=== PATIENT | male | born 1950 | race African-American/Black ===

== ENCOUNTER 2018-04-02 15:19 | Observation (INO) ==
[2018-04-02] MEDS ORDERED: Labetalol HCl Inj 100 MG/20 ML Vial IV.PUSH ONE ×2 (16:49→18:08)
[2018-04-02] MEDS ORDERED: amLODIPine 10 MG Tablet PO ONE (16:49)
--- NOTE | 2018-04-02 16:56 | ED ---
HPI General Chief complaint: Recheck/Abnormal Lab/Rx Stated complaint: poss high blood pressure Time Seen by Provider: 04/02/18 16:48 History of Present Illness HPI narrative: 67-year-old male presents to the emergency department for evaluation of elevated blood pressure. Patient states that he was at [facility] earlier today and he is upper arms have been hurting him for the past 3 days so he decided to check his blood pressure. States that his blood pressure was about 180/[address] [facility] so he went to an urgent care clinic for further evaluation. States that he was told by urgent care to come to the emergency department for elevated blood pressure. He states that he has no history of hypertension or elevated blood pressure, states that over the past 2 weeks he has been eating very salty foods which he normally does not eat. States that over the past 3 days he has had a soreness pain in his shoulders extending to his elbows, states it is also associated with a numbness sensation. States that it is worse at night. He does do heavy lifting for work. Denies any specific injury or trauma to his shoulders or arms. He denies any headache, lightheadedness, dizziness, nausea, vomiting, abdominal pain, chest pain, shortness of breath, weakness. No other complaints or concerns. Related Data Home Medications Medication Instructions Recorded Confirmed No Known Home Medications 04/02/18 04/02/18 Allergies Allergy/AdvReac Type Severity Reaction Status Date / Time No Known Allergies Allergy Uncoded 12/13/15 13:07 Review of Systems ROS: all other systems reviewed are negative [facility] Medical History Medical History Hypercholesteremia (Acute) Hypertension (Acute) Surgical History Surgical History History of appendectomy (Acute) History of hernia repair (Acute) Social History Social History Substance History: No History of Abuse Second Hand Smoke Exposure: No Smoking Status: Never smoker Tobacco Type: Cigarettes How Often Do You Have a Drink Containing Alcohol: 2 to 3 times a week Recent Out of Country Travel within the Last 8 Weeks: No Exam Narrative Exam Narrative: GENERAL: Well-nourished and well-developed pleasant patient in no acute distress who is nontoxic appearing. SKIN: Warm and dry without any obvious rashes or lesions. HEAD: Normocephalic and atraumatic. EYES: No injection, drainage, or hyphema noted. PERRLA. EOMI. ENT: No nasal drainage noted. Oropharynx is clear. NECK: Supple and the trachea is midline. CARDIOVASCULAR: Regular rate and rhythm. RESPIRATORY: Breath sounds are equal bilaterally with no accessory muscle use, wheezing, rhonchi, or crackles. GASTROINTESTINAL: Abdomen is soft, non-tender, and nondistended. No hepatosplenomegaly. MUSCULOSKELETAL: No obvious deformities, swelling, cyanosis, or ecchymosis is present throughout the upper and lower extremities. Patient has full range of motion without any signs of neurovascular compromise. Distal pulses are 2+ throughout. Strength 5/5 upper and lower extremities equal bilaterally. NEUROLOGICAL: Awake, alert, and oriented. Normal speech and gait. Cranial nerves are grossly intact. Course Initial Documented Vital Signs Temperature 98 F 04/02/18 15:25 Pulse Rate 65 04/02/18 15:25 Respiratory Rate 18 04/02/18 15:25 Blood Pressure 238/112 H 04/02/18 15:25 Pulse Oximetry 99 04/02/18 15:25 Last Documented Vital Signs Temperature 98 F 04/02/18 15:25 Pulse Rate 72 04/02/18 18:49 Respiratory Rate 18 04/02/18 18:49 Blood Pressure 176/111 H 04/02/18 18:49 Pulse Oximetry 98 04/02/18 18:49 Medical Decision Making MDM Narrative Medical decision making narrative: 67-year-old male presents to the emergency department for evaluation of elevated blood pressure. Patient's blood pressure is 238/112. Otherwise vital signs are within normal limits. Patient's only complaint is he has had bilateral shoulder pain extending down to his elbows for the past 3 days mostly at night. Physical examination is essentially unremarkable. No focal neurologic deficits. IV access is obtained, labs have been drawn and sent. Patient is placed on cardiac telemetry and pulse oximetry monitoring. Patient is administered labetalol 10 mg IV and Norvasc 10 mg orally. Patient's blood pressure still elevated at 198/103 so he is given another dose of Labetalol 10 mg IV. After observation here in the ED his BP has remained elevated at 176/111. I discussed the case with my attending physician Dr. Davis and we agree the patient should be kept overnight for observation and blood pressure control. I spoke with Dr. Telles who agrees to accept the patient to his service. Medical Screen Exam Complete: Yes Emergency Medical Condition: Yes Differential Diagnosis Differential Diagnosis: Uncontrolled hypertension versus hypertensive urgency versus asymptomatic hypertension Lab Data Result diagrams: 04/02/18 17:00 18 17:34 Lab Results 04/02/18 04/02/18 Range/Units 17:00 17:34 WBC 8.4 (4.0-11.0) th/mm3 RBC 6.11 H (4.50-5.90) mil/mm3 Hgb 14.5 (13.0-17.0) gm/dL Hct 44.8 (39.0-51.0) % MCV 73.4 L (80.0-100.0) fL MCH 23.8 L (27.0-34.0) pg MCHC 32.4 (32.0-36.0) % RDW 15.6 (11.6-17.2) % Plt Count 251 (150-450) th/mm3 MPV 8.0 (7.0-11.0) fL Neut % (Auto) 63.7 (16.0-70.0) % Lymph % (Auto) 27.4 (9.0-44.0) % [place] % (Auto) 6.9 (0.0-8.0) % Eos % (Auto) 1.5 (0.0-4.0) % Baso % (Auto) 0.5 (0.0-2.0) % Neut # (Auto) 5.4 (1.8-7.7) th/mm3 Lymph # (Auto) 2.3 (1.0-4.8) th/mm3 [place] # (Auto) 0.6 (0.0-0.9) th/mm3 Eos # (Auto) 0.1 (0.0-0.4) th/mm3 Baso # (Auto) 0.0 (0.0-0.2) th/mm3 WBC Differential . Differential Comment Auto diff final Sodium 139 (136-145) meq/L Potassium 3.8 (3.5-5.1) meq/L Chloride 103 (98-107) meq/L Carbon Dioxide 27.6 (21.0-32.0) meq/L Anion Gap 8 (5-15) meq/L BUN 13 (7-18) mg/dL Creatinine 0.93 (0.60-1.30) mg/dL Estimated GFR Greater than 89 (>89) mL/min Random Glucose 87 (74-106) mg/dL Calcium 8.7 (8.5-10.1) mg/dL Total Bilirubin 0.3 (0.2-1.0) mg/dL AST 20 (15-37) U/L ALT 22 (12-78) U/L Alkaline Phosphatase 61 (45-117) U/L Troponin I Less than 0.02 L (0.02-0.05) ng/mL Total Protein 7.9 (6.4-8.2) g/dL Albumin 3.9 (3.4-5.0) g/dL Discharge Plan Discharge Disposition Patient Disposition: 30 Still Patient Discharge Condition Condition: Stable Discharge Details Diagnosis: Hypertensive urgency Physicians Team ED Provider: La Davis ED Midlevel Provider: Ligia Telles Primary Care Provider: UNKNOWN, Rxs /Orders / Referrals /Forms Prescriptions: No Action No Known Home Medications RF: 0 Discharge Interventions Interventions: Vital Signs Last Done: 04/02/18 15:30 Status ED Status: With Doctor
[2018-04-02 17:13] LABS: Baso % (Auto) 0.5 % (0.0-2.0); Eos # (Auto) 0.1 th/mm3 (0.0-0.4); Eos % (Auto) 1.5 % (0.0-4.0); Hematocrit 44.8 % (39.0-51.0); Hemoglobin 14.5 gm/dL (13.0-17.0); Lymph # (Auto) 2.3 th/mm3 (1.0-4.8); Lymph % (Auto) 27.4 % (9.0-44.0); Mean Corpuscular HGB Conc 32.4 % (32.0-36.0); Mean Corpuscular Hemoglobin 23.8 pg (27.0-34.0); Mean Corpuscular Volume 73.4 fL (80.0-100.0); Mono # (Auto) 0.6 th/mm3 (0.0-0.9); Mono % (Auto) 6.9 % (0.0-8.0); Neut # (Auto) 5.4 th/mm3 (1.8-7.7); Neut % (Auto) 63.7 % (16.0-70.0); Platelet Count 251 th/mm3 (150-450); Red Blood Count 6.11 mil/mm3 (4.50-5.90); Red Cell Distribution Width 15.6 % (11.6-17.2); White Blood Count 8.4 th/mm3 (4.0-11.0)
[2018-04-02 18:17] LABS: Alanine Aminotransferase 22 U/L (12-78)
[2018-04-02 18:18] LABS: Albumin 3.9 g/dL (3.4-5.0); Anion Gap 8 meq/L (5-15); Aspartate Aminotransferase 20 U/L (15-37); Blood Urea Nitrogen 13 mg/dL (7-18); Calcium 8.7 mg/dL (8.5-10.1); Carbon Dioxide 27.6 meq/L (21.0-32.0); Chloride 103 meq/L (98-107); Glomerular Filtration Rate Greater Than 89 mL/min (>89); Glucose,Random 87 mg/dL (74-106); Potassium 3.8 meq/L (3.5-5.1); Sodium 139 meq/L (136-145)
[2018-04-02 18:21] LABS: Alkaline Phosphatase 61 U/L (45-117); Total Protein 7.9 g/dL (6.4-8.2)
[2018-04-02] MEDS ORDERED: Lisinopril 20 MG Tablet PO ONE (19:09)
[2018-04-02] MEDS ORDERED: Zolpidem Tartrate 5 MG Tablet PO PRN (19:10)
--- NOTE | 2018-04-02 20:03 | P.HPIM ---
History of Present Illness Primary Care Physician: UNKNOWN Chief Complaint: high blood pressure History of Present Illness: 67 y/o male with no medical history, and no pcp presented to the ED with complaint of a high blood pressure. Patient states for the last 2 nights he has been having muscle pains, stiffness in his bilateral upper extremities. He states today he went to [facility] to check his BP and is was elevated and he then went to an urgent care that then sent him to the ED. Patient denies any recent stress, chest pain, dizziness or sob. He does not smoke or drink heavily. He does not follow with a pcp and states he has never had this problem before. He does state that the pain in his arms has subsided. Denies any numbness, tingling or edema in any extremities. Review of Systems All other systems reviewed negative except as stated in HPI PMFSH - History History Provided By: Patient - Medical History Medical History: Medical History (Last Updated 04/02/18 @ 19:53 by DUSTIN Preciado) Hypertension - Surgical History Surgical History: Surgical History (Last Updated 04/02/18 @ 16:54 by Tatiana Torres) History of appendectomy History of hernia repair - Family History Family History: Family History (Last Updated 04/02/18 @ 19:52 by DUSTIN Preciado) Mother Bone cancer - Tobacco History Second Hand Smoke Exposure: No Tobacco Use In Past 30 Days: No Smoking Status: Never smoker Tobacco Type: Cigarettes - Alcohol History How Often Do You Have a Drink Containing Alcohol: 2 to 3 times a week - Substance Use History Substance History: No History of Abuse - Travel History Recent Travel Out of the Country Within the Last 8 Weeks: No - Immunization History Tetanus Immunization: Unsure Hx Influenza Vaccine This Season: Yes Medications and Allergies Active Medications: Active Medications Al Hydroxide/Mg Hydroxide (Milk Of Joshua Iniguez) 30 ml PO Q12H PRN PRN Reason: Mild Constipation Clonidine HCl (Catapres) 0.1 mg PO Q6H PRN PRN Reason: SYS BP GREATER THAN 160 MMHG Enalaprilat (Vasotec Inj) 1.25 mg IV.PUSH Q6H PRN PRN Reason: SBP>160, DBP>90 Lisinopril (Prinivil) 40 mg PO DAILY DIONNE Sodium Chloride (Ns Flush) 2 ml IV.FLUSH UNSCH PRN PRN Reason: FLUSH AFTER USING IV ACCESS Zolpidem Tartrate (Ambien) 5 mg PO HS PRN PRN Reason: INSOMNIA Allergies Allergy/AdvReac Type Severity Reaction Status Date / Time No Known Allergies Allergy Uncoded 12/13/15 13:07 Home Medications Medication Instructions Recorded Confirmed Type No Known Home Medications 04/02/18 04/02/18 History Exam Vital signs: Vital Signs 04/02/18 15:25 04/02/18 15:30 04/02/18 17:45 Temperature 98 F Pulse Rate 65 75 65 Respiratory Rate 18 18 18 Blood Pressure 238/112 H 240/127 H 198/103 H Pulse Oximetry 99 100 98 04/02/18 18:49 Temperature Pulse Rate 72 Respiratory Rate 18 Blood Pressure 176/111 H Pulse Oximetry 98 Narrative: GENERAL: This is a well-nourished, well-developed patient, in no apparent distress. CARDIOVASCULAR: Regular rate and rhythm without murmurs, gallops, or rubs. RESPIRATORY: Clear to auscultation. Breath sounds equal bilaterally. No wheezes , rales, or rhonchi. GASTROINTESTINAL: Abdomen soft, non-tender, nondistended. Normal active bowel sounds MUSCULOSKELETAL: Extremities without clubbing, cyanosis, or edema. NEURO: Alert & Oriented x4 to person, place, time, situation. Moves all ext x4 Results - Labs CBC & Chem 7: 04/02/18 17:00 04/02/18 17:34 Labs: Short CBC 04/02/18 Range/Units 17:00 WBC 8.4 (4.0-11.0) th/mm3 Hgb 14.5 (13.0-17.0) gm/dL Hct 44.8 (39.0-51.0) % Plt Count 251 (150-450) th/mm3 BMP 04/02/18 17:34 Sodium 139 Potassium 3.8 Chloride 103 Carbon Dioxide 27.6 BUN 13 Creatinine 0.93 Calcium 8.7 Cardiac Enzymes 04/02/18 Range/Units 17:34 Troponin I Less than 0.02 L (0.02-0.05) ng/mL Liver Function 04/02/18 Range/Units 17:34 Total Bilirubin 0.3 (0.2-1.0) mg/dL AST 20 (15-37) U/L ALT 22 (12-78) U/L Alkaline Phosphatase 61 (45-117) U/L Albumin 3.9 (3.4-5.0) g/dL Caprini VTE Risk Assessment Caprini VTE Risk Assessment: No/Low Risk (score <= 1) Caprini Risk Assessment Model: Point Value = 1 Point Value = 2 Point Value = 3 Point Value = 5 Age 41-60 Minor surgery BMI > 25 kg/m2 Swollen legs Varicose veins or History of unexplained or recurrent spontaneous Oral contraceptives or hormone replacement Sepsis (< 1 month) Serious lung disease, including pneumonia (< 1 month) Abnormal pulmonary function Acute myocardial infarction Congestive heart failure (< 1 month) History of inflammatory bowel disease Medical patient at bed rest Age 61-74 Arthroscopic surgery Major open surgery (> 45 min) Laparoscopic surgery (> 45 min) Malignancy Confined to bed (> 72 hours) Immobilizing plaster cast Central venous access Age >= 75 History of VTE Family history of VTE Factor V Leiden Prothrombin [id number] Lupus anticoagulant Anticardiolipin antibodies Elevated serum homocysteine Heparin-induced thrombocytopenia Other congenital or acquired thrombophilia Stroke (< 1 month) Elective arthroplasty Hip, pelvis, or leg fracture Acute spinal cord injury (< 1 month) Prophylaxis Regimen: Total Risk Factor Score Risk Level Prophylaxis Regimen 0-1 Low Early ambulation 2 Moderate Order ONE of the following: *Sequential Compression Device (SCD) *Heparin 5000 units SQ BID 3-4 Higher Order ONE of the following medications: *Heparin 5000 units SQ TID *Enoxaparin/Lovenox 40 mg SQ daily (WT < 150 kg, CrCl > 30 mL/min) *Enoxaparin/Lovenox 30 mg SQ daily (WT < 150 kg, CrCl > 10-29 mL/min) *Enoxaparin/Lovenox 30 mg SQ BID (WT < 150 kg, CrCl > 30 mL/min) AND/OR *Sequential Compression Device (SCD) 5 or more Highest Order ONE of the following medications: *Heparin 5000 units SQ TID (Preferred with Epidurals) *Enoxaparin/Lovenox 40 mg SQ daily (WT < 150 kg, CrCl > 30 mL/min) *Enoxaparin/Lovenox 30 mg SQ daily (WT < 150 kg, CrCl > 10-29 mL/min) *Enoxaparin/Lovenox 30 mg SQ BID (WT < 150 kg, CrCl > 30 mL/min) AND *Sequential Compression Device (SCD) Assessment and Plan - Plan 67 y/o male with no medical history, and no pcp presented to the ED with complaint of a high blood pressure. Hypertensive urgency, BP on admission 238/112, no HTN history -Norvasc and lisinopril given x 1 in ED -Cont lisinopril daily 40mg, will add medications as needed -Trend troponin -clonidine prn and vasotec IV prn -monitor vitals -Consult case management for outpatient follow up DVT prophylaxis: SCDs Discussed Condition With: Patient and RN
--- NOTE | 2018-04-02 20:58 | ECG ---
Date Performed: 04/02/2018 Time Performed: 18:19:35 PTAGE: 67 years EKG: Sinus rhythm WITH OCCASIONAL SUPRAVENTRICULAR PREMATURE COMPLEXES POSSIBLE LEFT ATRIAL ENLARGEMENT POSSIBLE LEFT VENTRICULAR HYPERTROPHY NONSPECIFIC ST ABNORMALITY ABNORMAL ECG NO PREVIOUS TRACING DOCTOR: Romero Vegas Interpretating Date/Time 04/02/2018 20:56:43
[2018-04-03 08:00] LABS: Baso % (Auto) 0.5 % (0.0-2.0); Eos # (Auto) 0.1 th/mm3 (0.0-0.4); Eos % (Auto) 3.2 % (0.0-4.0); Hematocrit 42.6 % (39.0-51.0); Hemoglobin 13.9 gm/dL (13.0-17.0); Lymph # (Auto) 1.6 th/mm3 (1.0-4.8); Lymph % (Auto) 34.6 % (9.0-44.0); Mean Corpuscular HGB Conc 32.8 % (32.0-36.0); Mean Corpuscular Hemoglobin 23.6 pg (27.0-34.0); Mean Corpuscular Volume 72.2 fL (80.0-100.0); Mean Platelet Volume 8.3 fL (7.0-11.0); Mono # (Auto) 0.5 th/mm3 (0.0-0.9); Mono % (Auto) 11.6 % (0.0-8.0); Neut # (Auto) 2.2 th/mm3 (1.8-7.7); Neut % (Auto) 50.1 % (16.0-70.0); Platelet Count 249 th/mm3 (150-450); Red Cell Distribution Width 15.4 % (11.6-17.2); White Blood Count 4.5 th/mm3 (4.0-11.0)
[2018-04-03 08:25] LABS: Alanine Aminotransferase 19 U/L (12-78); Albumin 3.5 g/dL (3.4-5.0); Anion Gap 9 meq/L (5-15); Aspartate Aminotransferase 13 U/L (15-37); Blood Urea Nitrogen 15 mg/dL (7-18); Calcium 8.7 mg/dL (8.5-10.1); Carbon Dioxide 28.6 meq/L (21.0-32.0); Chloride 105 meq/L (98-107); Glomerular Filtration Rate Greater Than 89 mL/min (>89); Glucose,Random 84 mg/dL (74-106); Potassium 3.6 meq/L (3.5-5.1); Sodium 143 meq/L (136-145)
[2018-04-03 08:29] LABS: Alkaline Phosphatase 52 U/L (45-117); Total Protein 6.9 g/dL (6.4-8.2)
[2018-04-03 08:32] VITALS: BP 130/80; RESP 17; TEMP 98.2; O2SAT 97
[2018-04-03] MEDS ORDERED: Lisinopril 20 MG Tablet PO SCH (09:00)
[2018-04-03 10:30] VITALS: PULSE 54
--- NOTE | 2018-04-03 11:54 | P.PN ---
Subjective Interval history: Patient is seen sitting up in bed. He reports that his upper arm pain has resolved. No dizziness syncope or headache. No chest pain or palpitations. No shortness of breath. Discussed the importance of blood pressure control in the avoidance of heart failure, stroke and kidney failure. He tells me that he does have primary care and will be following up with them discharge Physical Exam Vital signs: Vital Signs 04/02/18 15:25 04/02/18 15:30 04/02/18 17:45 Temperature 98 F Pulse Rate 65 75 65 Respiratory Rate 18 18 18 Blood Pressure 238/112 H 240/127 H 198/103 H Pulse Oximetry 99 100 98 04/02/18 18:49 04/02/18 19:55 04/02/18 20:19 Temperature Pulse Rate 72 66 69 Respiratory Rate 18 18 18 Blood Pressure 176/111 H 171/109 H 164/97 H Pulse Oximetry 98 98 98 04/02/18 21:43 04/03/18 00:00 04/03/18 00:27 Temperature 98.7 F 97.4 F L Pulse Rate 57 L 60 53 L Respiratory Rate 18 22 Blood Pressure 122/78 117/71 Pulse Oximetry 98 98 04/03/18 08:00 04/03/18 09:00 Temperature 98.2 F Pulse Rate 65 54 L Respiratory Rate 17 Blood Pressure 130/80 Pulse Oximetry 97 Intake & Output 04/02/18 04/03/18 04/03/18 18:59 06:59 18:59 Weight 66.224 kg Other: Date of Last Bowel Movement 04/02/18 04/02/18 Narrative: GENERAL: Well-nourished, well-developed adult male in no obvious distress. SKIN: Warm and dry. HEAD: Atraumatic. Normocephalic. CARDIOVASCULAR: Regular rate and rhythm. RESPIRATORY: No accessory muscle use. Clear to auscultation. Breath sounds equal bilaterally. GASTROINTESTINAL: Abdomen soft, non-tender, non-distended. Positive bowel sounds. MUSCULOSKELETAL: Extremities without clubbing, cyanosis, or edema. No obvious deformities. NEUROLOGICAL: Awake and alert. No obvious cranial nerve deficits. Motor grossly within normal limits. Normal speech. PSYCHIATRIC: Appropriate mood and affect; insight and judgment good. Results - Labs CBC & Chem 7: 04/03/18 06:29 04/03/18 06:29 Laboratory Results - last 24 hr 04/02/18 04/02/18 04/02/18 17:00 17:34 22:59 WBC 8.4 RBC 6.11 H Hgb 14.5 Hct 44.8 MCV 73.4 L MCH 23.8 L MCHC 32.4 RDW 15.6 Plt Count 251 MPV 8.0 Neut % (Auto) 63.7 Lymph % (Auto) 27.4 [place] % (Auto) 6.9 Eos % (Auto) 1.5 Baso % (Auto) 0.5 Neut # (Auto) 5.4 Lymph # (Auto) 2.3 [place] # (Auto) 0.6 Eos # (Auto) 0.1 Baso # (Auto) 0.0 WBC Differential . Differential Comment Auto diff final Sodium 139 Potassium 3.8 Chloride 103 Carbon Dioxide 27.6 Anion Gap 8 BUN 13 Creatinine 0.93 Estimated GFR Greater than 89 Random Glucose 87 Calcium 8.7 Total Bilirubin 0.3 AST 20 ALT 22 Alkaline Phosphatase 61 Troponin I Less than 0.02 L Less than 0.02 L Total Protein 7.9 Albumin 3.9 04/03/18 04/03/18 06:29 06:29 WBC 4.5 RBC 5.90 Hgb 13.9 Hct 42.6 MCV 72.2 L MCH 23.6 L MCHC 32.8 RDW 15.4 Plt Count 249 MPV 8.3 Neut % (Auto) 50.1 Lymph % (Auto) 34.6 [place] % (Auto) 11.6 H Eos % (Auto) 3.2 Baso % (Auto) 0.5 Neut # (Auto) 2.2 Lymph # (Auto) 1.6 [place] # (Auto) 0.5 Eos # (Auto) 0.1 Baso # (Auto) 0.0 WBC Differential . Differential Comment Auto diff final Sodium 143 Potassium 3.6 Chloride 105 Carbon Dioxide 28.6 Anion Gap 9 BUN 15 Creatinine 0.89 Estimated GFR Greater than 89 Random Glucose 84 Calcium 8.7 Total Bilirubin 0.7 AST 13 L ALT 19 Alkaline Phosphatase 52 Troponin I Less than 0.02 L Total Protein 6.9 D Albumin 3.5 Assessment and Plan - Plan 67 y/o male with no medical history, and no pcp presented to the ED with complaint of a high blood pressure. Hypertensive urgency, BP on admission 238/112, no HTN history -Norvasc and lisinopril given x 1 in ED -Cont lisinopril daily 40mg, will add medications as needed - BP well controlled on lisinopril - no cough or angioedema noted -Trend troponin -troponins negative -clonidine prn and vasotec IV prn -monitor vitals DVT prophylaxis: SCDs Discussed Condition With: Patient and RN
--- NOTE | 2018-04-03 12:03 | P.DS ---
Date of admission: 04/02/18 19:10 Primary care physician: UNKNOWN Attending physician on discharge: Alex Morris Anticipated date of discharge: 04/03/18 Brief History from admission: 67 y/o male with no medical history, and no pcp presented to the ED with complaint of a high blood pressure. Patient states for the last 2 nights he has been having muscle pains, stiffness in his bilateral upper extremities. He states today he went to [facility] to check his BP and is was elevated and he then went to an urgent care that then sent him to the ED. Patient denies any recent stress, chest pain, dizziness or sob. He does not smoke or drink heavily. He does not follow with a pcp and states he has never had this problem before. He does state that the pain in his arms has subsided. Denies any numbness, tingling or edema in any extremities. DS: Diagnosis - Discharge Diagnosis (1) Hypertension Status: Chronic (2) Hypertensive urgency Status: Resolved DS: Medications - Discharge Medications Prescriptions: lisinopril 40 mg PO DAILY #30 tab DS: Summary Hospital Course: Patient is a 67-year-old male who endorses no prior medical history. He presented to the ED 04/02 with a complaint of high blood pressure. He had taken his blood pressure at [facility] and noted it was "in the 180s" so he went to an urgent skilled nursing subsequently directed him to the ED. Admission blood pressure was 238/112. Patient denies any history of previously taking blood pressure medications but does endorse a recent very salty diet which he thinks contributed. He was having some upper arm and shoulder pain on admission. This has resolved with control of his blood pressure. Responded well to lisinopril 40 mg daily. Troponins were evaluated and were negative. - Time Spent with Patient Total time spent providing and/or coordinating discharge services: Less than 30 minutes - Quality: VTE Deep Vein Thrombosis/Pulmonary Embolism Present on Admission: No Exam Vital signs: Vital Signs 04/02/18 15:25 04/02/18 15:30 04/02/18 17:45 Temperature 98 F Pulse Rate 65 75 65 Respiratory Rate 18 18 18 Blood Pressure 238/112 H 240/127 H 198/103 H Pulse Oximetry 99 100 98 04/02/18 18:49 04/02/18 19:55 04/02/18 20:19 Temperature Pulse Rate 72 66 69 Respiratory Rate 18 18 18 Blood Pressure 176/111 H 171/109 H 164/97 H Pulse Oximetry 98 98 98 04/02/18 21:43 04/03/18 00:00 04/03/18 00:27 Temperature 98.7 F 97.4 F L Pulse Rate 57 L 60 53 L Respiratory Rate 18 22 Blood Pressure 122/78 117/71 Pulse Oximetry 98 98 04/03/18 08:00 04/03/18 09:00 Temperature 98.2 F Pulse Rate 65 54 L Respiratory Rate 17 Blood Pressure 130/80 Pulse Oximetry 97 Intake & Output 04/02/18 04/03/18 04/03/18 18:59 06:59 18:59 Weight 66.224 kg Other: Date of Last Bowel Movement 04/02/18 04/02/18 Narrative: GENERAL: Well-nourished, well-developed adult male in no obvious distress. SKIN: Warm and dry. HEAD: Atraumatic. Normocephalic. CARDIOVASCULAR: Regular rate and rhythm. RESPIRATORY: No accessory muscle use. Clear to auscultation. Breath sounds equal bilaterally. GASTROINTESTINAL: Abdomen soft, non-tender, non-distended. Positive bowel sounds. MUSCULOSKELETAL: Extremities without clubbing, cyanosis, or edema. No obvious deformities. NEUROLOGICAL: Awake and alert. No obvious cranial nerve deficits. Motor grossly within normal limits. Normal speech. PSYCHIATRIC: Appropriate mood and affect; insight and judgment good. Results Procedures completed during hospitalization: none Labs on day of discharge: Labs from last 24 hours 04/03/18 04/03/18 04/02/18 06:29 06:29 22:59 WBC 4.5 RBC 5.90 Hgb 13.9 Hct 42.6 MCV 72.2 L MCH 23.6 L MCHC 32.8 RDW 15.4 Plt Count 249 MPV 8.3 Neut % (Auto) 50.1 Lymph % (Auto) 34.6 Martin % (Auto) 11.6 H Eos % (Auto) 3.2 Baso % (Auto) 0.5 Neut # (Auto) 2.2 Lymph # (Auto) 1.6 Martin # (Auto) 0.5 Eos # (Auto) 0.1 Baso # (Auto) 0.0 WBC Differential . Differential Comment Auto diff final Sodium 143 Potassium 3.6 Chloride 105 Carbon Dioxide 28.6 Anion Gap 9 BUN 15 Creatinine 0.89 Estimated GFR Greater than 89 Random Glucose 84 Calcium 8.7 Total Bilirubin 0.7 AST 13 L ALT 19 Alkaline Phosphatase 52 Troponin I Less than 0.02 L Less than 0.02 L Total Protein 6.9 D Albumin 3.5 04/02/18 04/02/18 17:34 17:00 WBC 8.4 RBC 6.11 H Hgb 14.5 Hct 44.8 MCV 73.4 L MCH 23.8 L MCHC 32.4 RDW 15.6 Plt Count 251 MPV 8.0 Neut % (Auto) 63.7 Lymph % (Auto) 27.4 [place] % (Auto) 6.9 Eos % (Auto) 1.5 Baso % (Auto) 0.5 Neut # (Auto) 5.4 Lymph # (Auto) 2.3 Martin # (Auto) 0.6 Eos # (Auto) 0.1 Baso # (Auto) 0.0 WBC Differential . Differential Comment Auto diff final Sodium 139 Potassium 3.8 Chloride 103 Carbon Dioxide 27.6 Anion Gap 8 BUN 13 Creatinine 0.93 Estimated GFR Greater than 89 Random Glucose 87 Calcium 8.7 Total Bilirubin 0.3 AST 20 ALT 22 Alkaline Phosphatase 61 Troponin I Less than 0.02 L Total Protein 7.9 Albumin 3.9 Discharge Plan - Discharge Disposition Patient Disposition: 01 Discharge Home - Discharge Condition Condition: Stable - Discharge Order Discharge Orders: Discharge Order (Routine); Ordered 04/03/18 Ordered By: Kenzie Diego - Physicians Team Primary Care Provider: UNKNOWN, Attending Provider: Alex Morris
== END 2018-04-03 13:17 | disposition home or self-care (01) ==
LOC: NEPC 15:19 → NEPFCDU 15:19 → NEDA 15:19 → NEPFCDU 20:51
PROVIDERS: ADMIT Hospitalist; ATTEND Hospitalist